=== PATIENT | male | born 1950 | race Hispanic/Latino ===

== ENCOUNTER 2022-05-25 13:13 | Emergency (ER) | payer OTHER ==
[2022-05-25 15:04] LABS: Absolute Lymphocytes (CBC) 1.6 K/uL (0.7-4.9); Lymphocytes % 17.3 % (15.3-44.8); MCV 90.3 fL (80-100); MPV 7.7 fL (7.6-11.3)
--- NOTE | 2022-05-25 15:23 | RAD REPORT ---
EXAM DESCRIPTION: RAD - Chest Single View - 05/25/2022 3:09 pm CLINICAL HISTORY: SWELLING COMPARISON: CHEST PA AND LAT 2 VIEW dated 05/04/2011; CHEST SINGLE VIEW dated 05/03/2011 FINDINGS: Lines: None. Lungs: No evidence of edema or pneumonia. Pleural: No significant pleural effusions or pneumothorax. Cardiac: The heart size is within normal limits. Mediastinum: Within normal limits. Bones: No acute fractures. Other: None IMPRESSION: No acute cardiopulmonary disease.
[2022-05-25 15:27] LABS: Potassium 4.6 mmol/L (3.5-5.1); Troponin High Sensitivity 12.2 pg/mL (<58.9)
--- NOTE | 2022-05-25 16:02 | RAD REPORT ---
EXAM DESCRIPTION: US - Extremity Venous Uni Ltd - 05/25/2022 3:55 pm CLINICAL HISTORY: Pain COMPARISON: None. TECHNIQUE: Real-time sonographic evaluation of the left lower extremity deep venous system was perfo rmed. FINDINGS: Normal compressibility, flow augmentation, phasic flow and spontaneous flow is identified in the left lower extremity deep venous system. No intraluminal filling defects seen. IMPRESSION: No DVT in the left lower extremity.
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
[2022-05-25 17:35] VITALS: TEMP 98.2; O2SAT 94
[2022-05-25 17:36] VITALS: BP 121/58
--- NOTE | 2022-05-26 19:12 | EKG ---
Test Date: 2022-05-25 Test Time: 15:27:28 [employer]: SANTOS MEASUREMENT RESULTS: Intervals: Rate: 78 ND: 192 QRSD: 102 QT: 380 QTc: 433 Ignacio: P: 17 ND: 192 QRS: -55 T: 95 INTERPRETIVE STATEMENTS: Normal sinus rhythm Left anterior fascicular block Septal infarct, age undetermined Possible Lateral infarct, age undetermined Abnormal ECG Compared to ECG 05/04/2011 06:22:20 Left anterior fascicular block now present Left-axis deviation no longer present T-wave abnormality no longer present Possible ischemia no longer present Myocardial infarct finding still present Electronically Signed On 05-26-22 19:10:22 [employer]IL BUILDER by Owen Renteria
== END 2022-05-25 17:07 | disposition home or self-care (01) ==
LOC: ER 13:13
DX: R05.9 Cough, unspecified (principal); R60.9 Edema, unspecified; E11.9 Type 2 diabetes mellitus without complications
CPT/HCPCS: 36415; 71045; 80048; 84484; 85025; 93005; 93971; 99284

== ENCOUNTER 2023-01-13 14:06 | Emergency (ER) | payer OTHER ==
[2023-01-13 15:12] LABS: SARS-CoV-2 Antigen Rapid Res Positive (Negative)
--- NOTE | 2023-01-13 15:26 | RAD REPORT ---
EXAM DESCRIPTION: RAD - Chest Pa And Lat (2 Views) - 01/13/2023 3:12 pm CLINICAL HISTORY: COUGH COMPARISON: Chest Single View dated 05/25/2022; CHEST PA AND LAT 2 VIEW dated 05/04/2011; CHEST SING LE VIEW dated 05/03/2011 TECHNIQUE: PA and lateral views of the chest were obtained. FINDINGS: The lungs are clear, apart from left basilar atelectasis which is stable. Elevation of the left hemidiaphragm again seen. Heart size is normal and central vasculature is within normal limits. No pleural effusion or pneumothorax seen. No acute bony finding noted. Metallic radiodensity overlyi ng the posterior upper left back, stable. IMPRESSION: No acute cardiopulmonary process. Stable findings as above.
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
[2023-01-13 16:11] VITALS: BP 122/75; TEMP 99.3; O2SAT 95
== END 2023-01-13 15:38 | disposition home or self-care (01) ==
LOC: ER 14:06
DX: U07.1 COVID-19 (principal); I50.9 Heart failure, unspecified; E11.9 Type 2 diabetes mellitus without complications; Z79.4 Long term (current) use of insulin
CPT/HCPCS: 36415; 71046; 87811; 99283